=== PATIENT | male | born 1980 | race Caucasian/White ===

== ENCOUNTER 2016-09-17 21:34 | Emergency (ER) | payer BC ==
[2016-09-17 21:44] VITALS: BP 111/69
--- NOTE | 2016-09-17 22:28 | UC ---
UC General HPI - HPI Summary HPI Summary: Patient has had 7 days of loose painful diarrhea, he is tolerating PO intake, but states it runs right though him, denies fever or vomiting, has had some CAREY - History of Current Complaint Chief Complaint: UCAbdominalPain Stated Complaint: STOMACH ACHE/DIARRHEA- ONE WEEK Time Seen by Provider: 09/17/16 21:54 Hx Obtained From: Patient Onset/Duration: Sudden Onset, Lasting Days - 7 Timing: Constant Onset Severity: Moderate Current Severity: Moderate Associated Signs & Symptoms: Positive: Diarrhea - Allergy/Home Medications Allergies/Adverse Reactions: Allergies Allergy/AdvReac Type Severity Reaction Status Date / Time No Known Allergies Allergy Verified 09/17/16 21:44 PMH/Surg Hx/FS Hx/Imm Hx Previously Healthy: Yes - Surgical History Surgical History: None - Family History Known Family History: Negative: Cardiac Disease, Hypertension - Social History Alcohol Use: None Alcohol Amount: sober 7 months Substance Use Type: None Smoking Status (MU): Never Smoked Tobacco Review of Systems Constitutional: Negative Skin: Negative Eyes: Negative ENT: Negative Respiratory: Negative Cardiovascular: Negative Gastrointestinal: Abdominal Pain, Diarrhea Genitourinary: Negative Motor: Negative Neurovascular: Negative Musculoskeletal: Negative Neurological: Negative Psychological: Negative All Other Systems Reviewed And Are Negative: Yes Physical Exam Triage Information Reviewed: Yes Appearance: Well-Nourished, Ill-Appearing, Pain Distress Vital Signs: Initial Vital Signs Temp 99.1 F 09/17/16 21:37 Pulse 80 09/17/16 21:37 Resp 16 09/17/16 21:37 BP 111/69 09/17/16 21:37 Pulse Ox 96 09/17/16 21:37 Vital Signs Reviewed: Yes Eye Exam: Normal ENT Exam: Normal Dental Exam: Normal Neck exam: Normal Respiratory Exam: Normal Cardiovascular Exam: Normal Abdomen Description: Positive: No Organomegaly, Soft, CVA Tenderness (R) - neg, CVA Tenderness (L) - neg Bowel Sounds: Positive: Hyperactive Musculoskeletal Exam: Normal Neurological Exam: Normal Psychological Exam: Normal Skin Exam: Normal Course/Dx - Course Course Of Treatment: hx obtained, exam performed ,meds reviewed, stool kit sent with patient, bentyl prescribed. - Differential Dx - Multi-Symptom Provider Diagnoses: diarrhea. abdominal cramping Discharge - Discharge Plan Condition: Stable Disposition: HOME Patient Education Materials: Acute Diarrhea (ED) Additional Instructions: Bring back the stool kit with your next BM, we open at 7 am. Use the bentyl as needed. Follow up with any increase in symtpoms.
--- NOTE | 2016-09-20 14:37 | UC ---
Progress - Progress Note Progress Note: please inform pt of positive test for crypto. nitrozoxanide 500 mg bid x 3 days sent. f/u with pcp.
--- NOTE | 2016-09-20 14:40 | UC ---
Progress - Progress Note Progress Note: please inform pt of positive test for crypto. nitrozoxanide 500 mg bid x 3 days sent. f/u with pcp.
== END 2016-09-17 22:39 | disposition home or self-care (01) ==
LOC: UCCORT 21:34
DX: R19.7 Diarrhea, unspecified (principal); R10.9 Unspecified abdominal pain
CPT/HCPCS: 99211; G0463